=== PATIENT | male | born 1975 | race Caucasian/White ===

== ENCOUNTER 2018-07-06 10:08 | Emergency (ER) | payer MEDICAID, OTHER ==
[~2018-07-06] VITALS: Ht 182.9 cm; Wt 84.0 kg
[2018-07-06 10:14] VITALS: BP 140/102
[2018-07-06] MEDS ORDERED: ipratropium/albuterol 3ml nebule NEB ONE (12:15)
[2018-07-06] MEDS ORDERED: CefTRIAXone/D5W-Rocephin 1gm 50 ML IV ONE (12:55)
[2018-07-06] MEDS ORDERED: azithromycin/NS 500mg/250ml 250 ML IV ONE (12:55)
[2018-07-06 13:06] LABS: BASOPHILS # (AUTO) 0.1 X10'3 (0-0.2); BASOPHILS % (AUTO) 0.7 % (0-1); EOSINOPHILS # (AUTO) 0.1 X10'3 (0-0.9); EOSINOPHILS % (AUTO) 0.7 % (0-6); HEMATOCRIT 40.5 % (42.0-52.0); HEMOGLOBIN 13.8 g/dl (14.0-17.9); LYMPHOCYTES % (AUTO) 8.1 % (21-51); MEAN CORPUSCULAR HGB CONC 34.1 g/dL (33.0-36.5); MEAN PLATELET VOLUME 7.9 FL (7.4-10.4); MONOCYTES # (AUTO) 1.1 X10'3 (0-0.9); MONOCYTES % (AUTO) 8.8 % (2-12); NEUTROPHILS # (AUTO) 10.4 X10'3 (1.8-7.7); NEUTROPHILS % (AUTO) 81.7 % (42-75); PLATELET COUNT 389 X10'3 (140-440); RED BLOOD COUNT 4.45 X10'6 (4.70-6.10); RED CELL DISTRIBUTION WIDTH 12.9 % (11.5-14.5); WHITE BLOOD COUNT 12.7 X10'3 (4.5-11.0)
[2018-07-06 13:18] LABS: ALANINE AMINOTRANSFERASE 32 U/L (12-78); ALBUMIN 2.7 G/DL (3.4-5.0); ALBUMIN/GLOBULIN RATIO 0.5 (1.1-1.5); ALKALINE PHOSPHATASE 108 IU/L (46-116); ANION GAP 10 (8-16); ASPARTATE AMINO TRANSFERASE 14 U/L (10-37); BILIRUBIN,TOTAL 0.5 MG/DL (0.1-1.0); BLOOD UREA NITROGEN 12 MG/DL (7-18); BUN/CREATININE RATIO 18.2 (5.4-32.0); CALCIUM 8.7 MG/DL (8.5-10.1); CHLORIDE 100 MMOL/L (99-107); CREATININE 0.66 MG/DL (0.60-1.10); GLUCOSE 100 MG/DL (70-104); POTASSIUM 3.1 MMOL/L (3.5-5.1); SODIUM 137 MMOL/L (135-145); TOTAL CARBON DIOXIDE 26.6 MMOL/L (24-32); TOTAL PROTEIN 7.9 G/DL (6.4-8.2); eGFR > 90 ML/MIN
[2018-07-06 13:29] LABS: INR 1.1 INR; PARTIAL THROMBOPLASTIN TIME 33 SECONDS (22-32); PROTHROMBIN TIME 10.7 SECONDS (9.0-12.0)
[2018-07-06] MEDS ORDERED: potassium Cl 20 mEq SR tablet PO ONE (13:35)
[2018-07-06] MEDS ORDERED: AZIT250T2 PO (13:43)
[2018-07-06] MEDS ORDERED: ALBU8HFA PO (13:43)
== END 2018-07-06 15:24 | disposition home or self-care (01) ==
LOC: ER 10:10
DX: J18.9 Pneumonia, unspecified organism (principal); F12.10 Cannabis abuse, uncomplicated; F17.200 Nicotine dependence, unspecified, uncomplicated; R07.89 Other chest pain
CPT/HCPCS: 36415; 71046; 80053; 83735; 83880; 85025; 85610; 85730; 94640; 94760; 96365; 96366; 96368; 99284; J0456; J0696

== ENCOUNTER 2021-01-02 02:27 | Emergency (ER) | payer MEDICAID, OTHER ==
[~2021-01-02] VITALS: Ht 182.9 cm; Wt 86.0 kg
[2021-01-02 02:30] VITALS: BP 156/113
== END 2021-01-03 07:24 | disposition home or self-care (01) ==
LOC: ER 02:29
DX: T40.601A Poisoning by unspecified narcotics, accidental (unintentional), initial encounter (principal); M54.89 Other dorsalgia; F12.90 Cannabis use, unspecified, uncomplicated; Z72.89 Other problems related to lifestyle; Z98.890 Other specified postprocedural states; Y92.89 Other specified places as the place of occurrence of the external cause
CPT/HCPCS: 99284